=== PATIENT | male | born 1985 | race Caucasian/White ===

== ENCOUNTER → 2020-10-30 15:06 | Outpatient (CLI) | payer OTHER, SELFPAY ==
[2020-10-30] MEDS: COVID-19 VACC #1, MRNA(MOD) 100 MCG/0.5 ML VIAL IM (15:16)
== END ==
PROVIDERS: Visit Provider Internal Medicine
DX: Z23 Encounter for immunization (principal)
CPT/HCPCS: 0011A; 91301

== ENCOUNTER → 2020-11-28 08:24 | Outpatient (CLI) | payer OTHER, SELFPAY ==
[2020-11-28] MEDS: COVID-19 VACC #2, MRNA(MOD) 100 MCG/0.5 ML VIAL IM (08:38)
== END ==
PROVIDERS: Visit Provider Internal Medicine
DX: Z23 Encounter for immunization (principal)
CPT/HCPCS: 0012A; 91301

== ENCOUNTER → 2020-12-03 09:16 | Outpatient (CLI) | payer OTHER, SELFPAY ==
[2020-12-03 10:22] LABS: Add Manual Diff / Slide Review NO; Basophils Absolute Auto 0 /uL (0-100); Basophils Percent Auto 0.6 % (0-2); Eosinophils Absolute Auto 100 /uL (0-450); Eosinophils Percent Auto 1.6 % (2-4); Hematocrit 43.3 % (41-53); Lymphocytes Absolute Auto 2000 /uL (1100-4500); Lymphocytes Percent Auto 41.7 % (25-40); Mean Corpuscular HGB Conc 34.6 % (30-36); Mean Corpuscular Hemoglobin 30.4 PG (26-34); Mean Corpuscular Volume 87.7 fL (80-100); Monocytes Absolute Auto 400 /uL (0-900); Monocytes Percent Auto 9.1 % (3-14); Neutrophils Absolute Auto 2200 /uL (1500-7000); Platelet Count 196 X10^3/uL (150-400); Red Blood Cell Count 4.94 X10^6/uL (4.5-5.9); Red Cell Distribution Width 13.2 % (11.6-14.8); White Blood Cell Count 4.7 X10^3/uL (4.5-11.0)
[2020-12-03 10:40] LABS: Alanine Aminotransferase 43 IU/L (<50); Albumin 4.6 g/dL (3.5-5.0); Albumin Globulin Ratio 1.6 (1.0-2.8); Alkaline Phosphatase 65 U/L (38-126); Aspartate Aminotransferase 30 IU/L (17-59); BUN Creatinine Ratio 18.3 (6-22); Bilirubin Total 0.4 mg/dL (0.2-1.3); Blood Urea Nitrogen 13 mg/dL (9-20); Calcium 9.8 mg/dL (8.4-10.2); Carbon Dioxide 30 mmol/L (22-32); Chloride 100 mmol/L (98-107); Estimated Glomerular Filt Rate > 60.0 mL/min (>60); Globulin 2.9 g/dL (1.7-4.1); Glucose 106 mg/dL (70-100); HEMOLYSIS < 15 (0-50); Potassium 4.2 mmol/L (3.4-5.1); Sodium 138 mmol/L (137-145); Total Protein 7.5 g/dL (6.3-8.2)
== END ==
LOC: LAB 09:17
PROVIDERS: PCP Registered Nurse; Referring Provider Registered Nurse; Visit Provider Registered Nurse
DX: K40.90 Unilateral inguinal hernia, without obstruction or gangrene, not specified as recurrent (principal); L30.9 Dermatitis, unspecified; Z00.00 Encounter for general adult medical examination without abnormal findings
CPT/HCPCS: 36415; 80053; 85025

== ENCOUNTER → 2020-12-10 09:08 | Outpatient (CLI) | payer OTHER, SELFPAY ==
[2020-12-10 10:35] LABS: COVID19 -Nasal RAPID Negative (Negative)
== END ==
PROVIDERS: PCP Registered Nurse; Visit Provider Surgery
DX: Z20.822 Contact with and (suspected) exposure to COVID-19 (principal)
CPT/HCPCS: 87635; C9803

== ENCOUNTER 2020-12-11 08:39 | Day surgery (SDC) | payer OTHER, SELFPAY ==
[2020-12-07 13:15] VITALS: BMI 22.8
[2020-12-11] VITALS (9 sets, daily range): BP systolic 66–121; BP diastolic 43–78; PULSE 59–78; RESP 8–15; TEMP 36.1–37.2; O2SAT 96–100; BMI 22.8
[2020-12-11] MEDS: LACTATED RINGERS 1,000 ML 100 ML IV (08:51)
--- NOTE | 2020-12-11 09:51 | PM.PREOP ---
Pre-operative Note Interval Note History & Physical reviewed/Exam performed by Physician: Yes Changes to H&P: No
[2020-12-11] MEDS: CEFAZOLIN 1 GM VIAL 2 GM IV (10:03)
--- NOTE | 2020-12-11 10:19 | SUR.OPER ---
Supine on padded OR bed, head on pillow, arms secured on padded arm boards at <90 degrees abduction, legs uncrossed, safety belt at thigh, tape over blanket over lower legs.
[2020-12-11] MEDS: BUPIVACAINE 0.25% (PF) VIAL 30 ML INJ (10:24)
--- NOTE | 2020-12-11 11:18 | P.OP_ITS ---
Operative Date/Time/Diagnoses Date of procedure: 12/11/20 Time of procedure: 11:18 Pre-op diagnosis: Right inguinal hernia Post-op diagnosis: same Procedure & Clinicians Procedure: Open right inguinal hernia repair Same procedure as scheduled: Yes Indications: Right inguinal hernia Surgeon: Kevin Pratt Anesthesia Type: General Operative Notes Findings: Direct floor defect. No indirect hernia Specimen(s): none sent Estimated Blood Loss (mL): 20 Procedure in detail: The patient was placed supine on the table and bilateral lower extremity compression devices were applied. Anesthesia was induced they were intubated with an LMA and received 2g of Ancef. A time-out was performed. They were prepped and draped in sterile fashion. The right external inguinal ring and the anterior superior iliac crest were identified and marked. 1 finger breath above the inguinal ligament the skin was infiltrated with 0.25% bupivaca ine. The skin incision was made here and the subcutaneous tissues were divided with electrocautery exposing the external oblique aponeurosis which was then opened along the direction of its fibers. Using blunt dissection the internal oblique aporneurosis was from the external oblique upper leaflet to identify the iliohypogastric nerve. Using a kittner the cord was carefully dissected away from the inguinal canal adjacent to the pubic tubercle. The cord including the vas deferens, testicular bloody supply, ilioguinal and genital nerve were encircled with a Sumter drain. A direct floor defect was identified and it was reduced into the abdomen and the internal oblique aporneuorsis was approximated to the inguinal ligament with Ethibond suture to reapproximate the floor. The cremasteric fibers surrounding the cord were divided using electrocautery adjacent to the internal ring.. The vas deferens and the testicular vessels were preserved and protected. The cord structures were carefully explored there was no evidence of an indirect hernia.. I selected a 7x 15 cm lightweight Pro Loop hernia mesh. The inferior medial aspect of the mesh was anchored to insertion of the rectus muscle to the pubic tubercle such that there was approximately 2 cm of tubercle overlap with Ethibond and then was run continuously along the inferior edge of the mesh to the shelving edge of the inguinal ligament. Interrupted 3 0 Vicryl suture was used to anchor the superior aspect of the mesh to the conjoined tendon in several places. The tails were then reapproximated loosely around the spermatic cord. The tails of the mesh were then tucked under the external oblique aponeurosis. The repair was checked for hemostasis. The wound was irrigated with sterile saline. The external oblique aponeurosis was reapproximated in a running fashion using 3 0 Vicryl. The subcutaneous tissues were reapproximated with 3 0 Vicryl skin closed with 4 0 Monocryl followed by the application of Dermabond. At the end of the operation I ensured that both testicles were within the scrotum. The sponge instrument count at the end operation was correct. The patient emerged from anesthesia was extubated and transferred to the postoperative care unit in stable condition. A total of 30 ml of of 0.25% bupivicaine was used to infiltrate the skin. Complications: none Post-operative Condition: stable Disposition: same day surgery
== END 2020-12-11 11:45 | disposition home or self-care (01) ==
PROVIDERS: PCP Registered Nurse; Referring Provider Registered Nurse; Visit Provider Surgery
PROC: (CPT 49505; principal; 2020-12-11 09:45)
DX: K40.90 Unilateral inguinal hernia, without obstruction or gangrene, not specified as recurrent (principal)
CPT/HCPCS: 49505; C1781; J0690; J2250; J2405; J2704; J3010

== ENCOUNTER → 2025-06-25 07:14 | Outpatient (CLI) | payer SELFPAY ==
--- NOTE | 2025-06-25 07:16 | DI.MRI.S_ITS ---
PROCEDURE: MR ANKLE LT WO CON INDICATIONS: Ankle instability TECHNIQUE: Noncontrast sagittal T1 spin echo and T2 fast spin echo with fat saturation, axial proton density fast spin echo and T2 fast spin echo with fat saturation, coronal T1 spin echo and T2 fast spin echo with fat saturation through the ankle/hindfoot. COMPARISON: None. FINDINGS: Image quality: Excellent. Bones and joints: There is marrow edema involving medial aspect of the navicular bone and adjacent medial cuneiform without definite fracture line. Marrow edema in included portion of 1st and 2nd metatarsal bases is also seen without definite fracture line. There is also marrow edema involving lateral periphery of lateral malleolus without discrete fracture line. No osteochondral injuries of talar dome. Small joint effusion, no loose bodies. Medial structures: The posterior tibialis tendon is mildly thickened with small amount of fluid distending tendon sheath at the level of distal talus and talonavicular joint. The flexor digitorum longus, and flexor hallucis longus tendons are intact. The posterior tibial neurovascular bundle appears normal within the tarsal tunnel, without extrinsic mass effect. The deltoid ligament and spring ligament are intact. Lateral structures: The anterior talofibular, calcaneofibular, and posterior talofibular ligaments appear intact. More superiorly, the anterior and posterior tibiofibular ligaments appear thickened with intrasubstance T2 hyperintense signal. The tibiofibular syndesmosis is normal in width at 2 mm or less. Mild tendinosis involving peroneus longus and brevis tendon at the level of lateral malleolus tip extending to the level of calcaneocuboid joint. The sinus tarsi demonstrates normal fatty signal, without edema, fibrosis, or cyst formation. Anterior structures: The tibialis anterior, extensor hallucis longus, and extensor digitorum longus tendons appear intact. The dorsal talonavicular ligament appears intact. Posterior and plantar structures: Achilles tendon is intact. Medial and lateral bands of the plantar fascia are of normal thickness. No abductor digiti quinti muscle atrophy to suggest Mosley neuropathy. IMPRESSION: 1. Suggestion of contusion versus stress related changes involving medial aspect of midfoot as above. Likely contusion involving lateral periphery of lateral malleolus. No displaced fracture or dislocation. No osteochondral injuries of talar dome. Small amount of joint effusion, no loose bodies. 2. Low-grade tenosynovitis involving posterior tibialis tendon at the level of distal talus extending to the level of talonavicular joint. 3. Mild tendinosis involving peroneus longus and brevis tendon at the level of lateral malleolus extending to the level of calcaneocuboid joint. 4. Sprain/low-grade intrasubstance partial-thickness tear involving anterior and posterior tibial fibular ligaments. No full-thickness ankle ligament rupture. Dictated by: Shivam Higuera M.D. on 06/26/2025 at 8:52 Approved by: Shivam Higuera M.D. on 06/26/2025 at 9:05
== END ==
LOC: MRI 07:16
PROVIDERS: Referring Provider Student in an Organized Health Care Education/Training Program; Visit Provider Student in an Organized Health Care Education/Training Program
DX: M25.372 Other instability, left ankle (principal); M25.472 Effusion, left ankle; M65.972 Unspecified synovitis and tenosynovitis, left ankle and foot; S93.432A Sprain of tibiofibular ligament of left ankle, initial encounter
CPT/HCPCS: 73721